=== PATIENT | male | born 1965 | race African-American/Black ===

== ENCOUNTER → 2018-07-15 | Outpatient (CLI) | payer OTHER ==
--- NOTE | 2018-07-15 10:03 | RAD ---
Lumbar spine, 3 views, 07/15/2018: HISTORY: Chronic low back pain and left leg radiculopathy The intervertebral disc spaces and vertebral heights are well-maintained. There are minimal scattered marginal spurs. No fracture or dislocation is identified. There is minimal aortic calcific plaquing. IMPRESSION: 1. Minimal marginal spurring. 2. No acute abnormality is detected. Electronically signed by: Willie Cox MD (07/15/2018 10:00 AM) [facility]
== END | disposition home or self-care (01) ==
LOC: DXRAD 09:20
PROVIDERS: ATTEND Internal Medicine Infectious Disease
DX: M46.06 Spinal enthesopathy, lumbar region (principal)
CPT/HCPCS: 72100